=== PATIENT | male | born 1975 | race Caucasian/White ===

== ENCOUNTER → 2025-02-06 16:34 | Outpatient (REF) | payer OTHER, SELFPAY | LOC: MRI 3T 16:34 | PROVIDERS: ATTENDING PHYSICIAN Specialist; FAMILY PHYSICIAN Internal Medicine | DX: R97.20 Elevated prostate specific antigen [PSA] (principal) | CPT/HCPCS: 72197; A9575 ==

== ENCOUNTER 2025-03-29 06:26 | Outpatient (RCR) | payer OTHER, SELFPAY | END 2025-03-29 23:59 | disposition home or self-care (01) | LOC: RPT 06:26 | PROVIDERS: ATTENDING PHYSICIAN Specialist; FAMILY PHYSICIAN Internal Medicine | DX: C61 Malignant neoplasm of prostate (principal); M62.89 Other specified disorders of muscle; Z73.6 Limitation of activities due to disability | CPT/HCPCS: 97162; 97530 ==

== ENCOUNTER 2025-04-11 06:00 | Day surgery (SDC) | payer OTHER, SELFPAY ==
[2025-03-30 11:05] LABS: Hematocrit 40.9 % (39.0-52.0); Hemoglobin 14.4 g/dL (13.0-18.0); Mean Corp Hgb Conc. 35.2 g/dL (33.0-37.0); Mean Corpuscular Volume 93.2 fL (80.0-94.0); Platelet Count 201 10^3/uL (130-400); Red Cell Dist. Width 12.4 % (11.5-14.5)
[2025-03-30 11:55] LABS: Blood Urea Nitrogen 18 mg/dl (9-20); Calcium 9.6 mg/dl (8.4-10.2); Carbon Dioxide 30 mmol/L (22-30); Chloride 102 mmol/L (98-107); Glucose 92 mg/dl (70-99); Potassium 4.5 mmol/L (3.5-5.1); Sodium 138 mmol/L (135-145); eGFR > 60.00
[2025-03-30 14:01] VITALS: BMI 30.9
[2025-04-11] VITALS (7 sets, daily range): BP systolic 116–169; BP diastolic 70–93; BMI 30.9; BMI 32.8
[2025-04-11] MEDS: NORMOSOL-R/PLASMALYTE-A 1000 IV ×3 (07:00→23:10)
[2025-04-11] MEDS: NEOMYCIN ENEMA 1 BOTTLE RECTAL (07:00)
--- NOTE | 2025-04-11 14:32 | PTCARENOTE ---
patient arrived to unit. VSS. Patient denies any pain at this time. AAOx4. SCDs remains in place. Wilder in place with blood tinge urine and patient states having the sensation to urinate. Patient in NAD. call arredondo in reach. safety maintained. will
continue to monitor.
[2025-04-11] MEDS: COLACE 100 MG PO (16:57)
[2025-04-11] MEDS: TORADOL 15 MG IV ×2 (17:00→23:10)
--- NOTE | 2025-04-11 17:12 | PTCARENOTE ---
patient's family concerned about patient's scrotum being swollen. patient denies any burning or pain at this time. urine output documented. MD Savage notified of findings. per MD this is not uncommon after this surgery. will continue to monitor.
--- NOTE | 2025-04-11 18:36 | PTCARENOTE ---
Patient tolerated clear liquid diet, will advance per standing order.
[2025-04-11] MEDS: POLYSPORIN/DOUBLE ANTIBIOTIC 1 APPLIC TOPICAL (19:35)
[2025-04-11] MEDS: MELATONIN 10 MG PO (20:57)
[2025-04-11] MEDS: TYLENOL 650 MG PO (22:37)
--- NOTE | 2025-04-11 22:50 | PTCARENOTE ---
Addendum entered by Brenda Johnson RN 04/12/25 06:00:
At present, pt states foot is still numb but has improved.
Original Note:
Previous nurse reported that pt was c/o RT foot/leg numbness which was confirmed on initial assessment of pt. Pt wished to get OOB and ambulate in the halls which he was able to do. No feeling that leg was going to give out, just that it was numb.
Pt has (+) pedal pulse to RT foot. Adilene [place] INKER made aware and came to assess pt(approx 2039) tonight. Suggested to remove pt's thigh high stocking on RT leg and just use compression sleeve only. As shift has gone on, pt states numbness is
now in foot only and improving but is still present. Care ongoing.
[2025-04-12 03:15] VITALS: BP 109/64
[2025-04-12] MEDS: TORADOL 15 MG IV (05:04)
--- NOTE | 2025-04-12 06:01 | PTCARENOTE ---
Pt switched over to a leg bag as ordered. Some teaching given on use of bag ie when and how to empty it.
[2025-04-12 07:00] VITALS: BP 126/72
[2025-04-12] MEDS: COLACE 100 MG PO (08:14)
[2025-04-12] MEDS: POLYSPORIN/DOUBLE ANTIBIOTIC 1 APPLIC TOPICAL (08:14)
[2025-04-12 08:20] LABS: Hematocrit 36.5 % (39.0-52.0); Hemoglobin 12.7 g/dL (13.0-18.0); Mean Corp Hgb Conc. 34.8 g/dL (33.0-37.0); Mean Corpuscular Volume 97.3 fL (80.0-94.0); Platelet Count 170 10^3/uL (130-400); Red Cell Dist. Width 12.2 % (11.5-14.5)
[2025-04-12 09:16] LABS: Blood Urea Nitrogen 24 mg/dl (9-20); Calcium 8.2 mg/dl (8.4-10.2); Carbon Dioxide 27 mmol/L (22-30); Chloride 101 mmol/L (98-107); Estimated Creatinine Clearance 114 ml/min; Glucose 107 mg/dl (70-99); Potassium 3.7 mmol/L (3.5-5.1); Sodium 134 mmol/L (135-145); eGFR > 60.00
--- NOTE | 2025-04-12 09:54 | VNURNOTE ---
Home Health Liaison met with patient at bedside to discuss [facility] nurse/therapy, visits, schedule and homebound status. Patient is agreeable and understands that visits at home will be 2-3 x per week to assess and teach medical and blake
management. Patient is aware that [facility] will contact them for start of care in 1-2 days after discharge from . Provided contact number for [facility].
[facility] referral completed in [facility].
--- NOTE | 2025-04-12 10:44 | CM ---
Alert awake patient who had surgery yesterday . MD ordered discharge for today. Pt agrees with discharge today . He is indpedent with all ADLs. [facility] saw patient Pt will have [facility] for Wilder removal and staple removal as per order. His will drive
him home.He has CPAP with [employer].
He lives in home with 12 steps to enter and 12 steps to bed/bathroom.
No VN /SNF hx.
Pharmacy [facility]
PLAN Home with [facility]
--- NOTE | 2025-04-12 10:50 | PTCARENOTE ---
Wilder care education provided to patient using teach back method. Patient is able to teach nurse how to change leg bag to standard urinary bag. all questions reviewed and answered. prepared for discharge
== END 2025-04-12 11:35 | disposition home or self-care (01) ==
LOC: SDS 06:00
PROVIDERS: ATTENDING PHYSICIAN Specialist; FAMILY PHYSICIAN Internal Medicine
DX: C61 Malignant neoplasm of prostate (principal)
CPT/HCPCS: 55866; 36415; 80048; 85027; 86850; 86900; 86901; 88307; 88309; 88342; 88344; 93005

== ENCOUNTER 2025-05-08 07:05 | Outpatient (RCR) | payer OTHER, SELFPAY | END 2025-05-08 23:59 | disposition home or self-care (01) | LOC: RPT 07:05 | PROVIDERS: ATTENDING PHYSICIAN Specialist; FAMILY PHYSICIAN Internal Medicine | DX: C61 Malignant neoplasm of prostate (principal); M62.89 Other specified disorders of muscle; Z73.6 Limitation of activities due to disability; Z90.79 Acquired absence of other genital organ(s) | CPT/HCPCS: 97112; 97164; 97530 ==